=== PATIENT | female | born 1990 | race Caucasian/White ===

== ENCOUNTER 2020-05-17 12:12 | Emergency (ER) | payer SELFPAY ==
[2020-05-17 12:17] VITALS: BP 158/83; PULSE 94; RESP 20; TEMP 37; O2SAT 100
--- NOTE | 2020-05-17 12:22 | ED.URI ---
HPI - URI/Sore Throat General Chief Complaint: Upper Respiratory Infection Stated Complaint: bronchitis Time Seen by Provider: 05/17/20 12:22 Source: patient and RN notes reviewed History of Present Illness HPI Narrative: Patient is a 29-year-old female who presents the urgent care with complaints of wheezing, coughing and coughing fits. Patient states that it started on Saturday and she does have a history of asthma, bronchitis, and pneumonia. Patient states that her last bout of pneumonia was in September 2019. Patient denies of any fever, chills, nausea, vomiting. 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 States that they do have COVID patients in the facility but she does not work on the floor with COVID patients. Patient denies of any known exposure to a positive COVID. States that she has been taking a daily allergy medication as well as Mucinex. No other acute complaints. No acute distress noted. Patient aware of the plan of care. Some parts of this dictation were generated by voice recognition software and may contain typographical and/or grammatical inaccuracies. Related Data Home Medications Medication Instructions Recorded Confirmed albuterol sulfate [ProAir HFA] 2 puff INHALATION QID PRN 05/17/20 05/17/20 fluticasone propion-salmeterol 1 inh INHALATION Q12H 05/17/20 05/17/20 [Advair Diskus] Allergies Allergy/AdvReac Type Severity Reaction Status Date / Time azithromycin Allergy Intermediate Rash Verified 05/17/20 12:31 levofloxacin Allergy Intermediate Rash Verified 05/17/20 12:31 Penicillins Allergy Intermediate Rash Verified 05/17/20 12:32 tramadol Allergy Intermediate Rash Verified 05/17/20 12:32 Cat Dander Allergy Intermediate EYE RED Uncoded 05/17/20 12:31 SWOLLEN , THROAT CLOSES UP Review of Systems Review of Systems: Narrative: CONSTITUTIONAL: Denies fever, chills, or sweats. EYES: Denies visual changes, redness, or discharge. ENT: Reports of congestion and postnasal drainage CARDIOVASCULAR: Denies chest pain, palpitations, or edema. RESPIRATORY: Reports a productive cough with intermittent dyspnea and wheezing GASTROINTESTINAL: Denies abdominal pain, nausea, vomiting, or diarrhea. GENITOURINARY: Denies dysuria or hematuria. SKIN: Denies rash or itching. MUSCULOSKELETAL: Denies back pain, joint pain, or myalgia. NEUROLOGIC: Denies headache, numbness, or weakness. All other systems reviewed are negative, except as documented in HPI. PMFSH Comments At the time of my signature, I reviewed and agree with the nursing past medical, surgical, social, and family history. There is no relevant family history pertinent to the patient complaint. Exam Narrative: Exam Narrative: GENERAL: This is a well-nourished, well-developed patient, in no apparent distress. HEAD: normocephalic, atraumatic. EYES: PERRL. Sclera clear/white. Vision is grossly intact. EARS: External ears normal, auditory canals clear and without drainage, TMs normal without perforation. Hearing grossly intact. NOSE: External nose normal with no obvious nasal discharge, nares without redness, no rhinorrhea. THROAT: Mucous membranes moist, posterior pharynx clear. Mild postnasal drainage NECK: Neck supple CARDIOVASCULAR: Regular rate and rhythm without murmurs, gallops, or rubs. RESPIRATORY: Inspiratory and expiratory wheezes throughout SKIN: warm, intact with no suspicious lesions or rash, good texture and turgor. NEURO: awake, alert, and oriented to person, place and time. There were no obvious focal neurologic abnormalities. EXTREMITIES: No clubbing, cyanosis, or edema. Course Vital Signs Vital signs: Vital Signs Temperature 98.6 F 05/17/20 12:17 Pulse Rate 94 05/17/20 12:17 Respiratory Rate 05/17/20 12:17 Blood Pressure 158/83 H 05/17/20 12:17 Pulse Oximetry 100 05/17/20 12:17 Temperature 98.6 F 05/17/20 12:17 Pulse Rate 94 05/17/20 12:17 Respirato
== END 2020-05-17 12:38 | disposition home or self-care (01) ==
PROVIDERS: Emergency Provider Nurse Practitioner Family
DX: J40 Bronchitis, not specified as acute or chronic (principal); E28.2 Polycystic ovarian syndrome
CPT/HCPCS: 99213; G0463